=== PATIENT | male | born 1960 | race Caucasian/White ===

== ENCOUNTER → 2018-10-26 | Outpatient (CLI) | payer OTHER ==
--- NOTE | 2018-10-31 09:30 | SLEEPCENT ---
DATE OF PROCEDURE: 10/26/2018 ORDERING PROVIDER: Dr. Jeremy Hawkins. Copy to Dr. Tran. INTERPRETATION: Nocturnal polysomnography was performed for the titration of pressure therapy in this patient with obstructive sleep apnea syndrome and complicated illness including pulmonary emboli and hypertension. For testing the patient was fit with in a [employer]Med Air-Fit F10 full-face mask of medium size and initial bilevel pressure was applied to the circuit at 8 inspiratory over 4 expiratory and the lights were extinguished. 7 hours and 34 minutes of data were reviewed. They are 310 minutes of sleep identified. Sleep latency was normal at 10 minutes. Rapid eye movement (REM) latency was short at 60 minutes. Sleep architecture was fair. There were four to five REM cycles noted. Overall sleep efficiency was 69.1%. The electrocardiogram showed a sinus rhythm with an average heart rate of 58 beats per minute. EEG showed reasonably normal waveforms for awake and sleep stages and optimal pressure therapy for the palliation of respiratory events is difficult to identify, however, the patient slept well on an inspiratory pressure of 12 over expiratory pressure of 8 above which pressure mixed and central apneas emerged. There was some activity seen in the limb EMG leads. Arousal index was low at 4.3. IMPRESSION: Obstructive sleep apnea syndrome (G47.33) RECOMMENDATIONS: Nightly use of pressure therapy via bilevel device inspiratory 12 over expiratory 8.
== END ==
LOC: M SLEEP 19:33
PROVIDERS: ATTEND Internal Medicine Pulmonary Disease
DX: G47.33 Obstructive sleep apnea (adult) (pediatric) (principal)